=== PATIENT | male | born 1960 | race Caucasian/White ===

== ENCOUNTER 2016-09-25 08:40 | Emergency (ER) | payer BC ==
[2016-09-25 08:47] VITALS: BP 134/72
--- NOTE | 2016-09-25 08:57 | UC ---
Lower Extremity/Ankle HPI - HPI Summary HPI Summary: complaint of foreign object in left foot noticed it 3 weeks ago has been using a knife to remove it without results painful to walk on it thinks he stepped on a twig or plant material no drainage from the site denies fever - History of Current Complaint Chief Complaint: [employer] Stated Complaint: FB IN LEFT FOOT Time Seen by Provider: 09/25/16 08:48 Hx Obtained From: Patient - Allergies/Home Medications Allergies/Adverse Reactions: Allergies Allergy/AdvReac Type Severity Reaction Status Date / Time No Known Allergies Allergy Verified 09/25/16 08:47 Home Medications: Home Medications Aspirin EC Low Dose* [Ecotrin EC Low Dose 81 MG*] 81 mg PO DAILY 09/25/16 [ History Confirmed 09/25/16] Atorvastatin* [Lipitor 10 MG*] 10 mg PO DAILY 09/25/16 [History Confirmed ] PMH/Surg Hx/FS Hx/Imm Hx Previously Healthy: Yes Endocrine History: Dyslipidemia Cardiovascular History: Hypertension - Surgical History Surgical History: None - Social History Occupation: Employed Full-time Lives: With Family Alcohol Use: Occasionally Substance Use Type: None Smoking Status (MU): Never Smoked Tobacco Review of Systems Constitutional: Negative Skin: Negative Eyes: Negative ENT: Negative Respiratory: Negative Cardiovascular: Negative Gastrointestinal: Negative Genitourinary: Negative Motor: Negative Neurovascular: Negative Musculoskeletal: Other: - left foot pain Neurological: Negative Psychological: Negative All Other Systems Reviewed And Are Negative: Yes Physical Exam Triage Information Reviewed: Yes Appearance: No Pain Distress, Well-Nourished Vital Signs: Initial Vital Signs Temp 98.1 F 09/25/16 08:41 Pulse 66 09/25/16 08:41 Resp 14 09/25/16 08:41 BP 134/72 09/25/16 08:41 Pulse Ox 100 09/25/16 08:41 Vital Signs Reviewed: Yes ENT: Positive: Normal ENT inspection Respiratory: Positive: Lungs clear, Normal breath sounds, No respiratory distress, No accessory muscle use Cardiovascular: Positive: RRR, No Murmur, Pulses Normal Musculoskeletal: Positive: Other: - left foot- foriegn object in pad of foot beneath 2nd and 3rd toe Neurological: Positive: Alert Psychological Exam: Normal Skin: Positive: Other - see musculoskeletal Procedures - Procedure Summary Procedure Summary: left foot cleansed with betadyne- small thron removed from foot with forcep splinters, bacitracin and bandiad applied Lower Extremity Course/Dx - Differential Dx/Diagnosis Differential Diagnosis/HQI/PQRI: Foreign Body Provider Diagnoses: foreign body left foot Discharge - Discharge Plan Condition: Stable Disposition: HOME Patient Education Materials: Soft Tissue Foreign Body (ED) Referrals: Hillary Barahona MD [Primary Care Provider] - Additional Instructions: Increase fluids and rest Take acetaminophen or ibuprofen for fever or pain Please review your discharge instructions. If your symptoms do not improve please call your primary care provider or return to urgent care Your blood pressure is pre-hypertensive reading. Please contact your primary care provider within 1 day -4 weeks for further evaluation
== END 2016-09-25 09:17 | disposition home or self-care (01) ==
LOC: UCCORT 08:40
DX: S90.852A Superficial foreign body, left foot, initial encounter (principal); W45.8XXA Other foreign body or object entering through skin, initial encounter; Y92.9 Unspecified place or not applicable; Z79.82 Long term (current) use of aspirin; E78.5 Hyperlipidemia, unspecified; I10 Essential (primary) hypertension
CPT/HCPCS: 28190; 99211; G0463